=== PATIENT | female | born 1985 | race Caucasian/White ===

== ENCOUNTER 2016-12-20 09:23 | Outpatient (CLI) | payer OTHER ==
--- NOTE | 2016-12-20 09:49 | DIAGNOSTIC IMAGING REPORT ---
PROCEDURE: XR HIP BILATERAL INDICATION: LEFT HIP PAIN TECHNIQUE: AP view of the pelvis and hips with lateral views of the bilateral hips. COMPARISON: None. FINDINGS: RIGHT HIP: No fracture or dislocation. Normal joint space. Os acetabulum is present. LEFT HIP: No fracture or dislocation. Normal joint space. Os acetabulum is present. AP PELVIS: No suspicious osseous masses. Soft tissues are unremarkable. IMPRESSION: 1. Negative bilateral hips
== END 2016-12-20 23:00 ==
LOC: XR SRH 09:23
DX: M25.551 Pain in right hip (principal)

== ENCOUNTER 2017-01-22 09:59 | Outpatient (CLI) | payer OTHER ==
--- NOTE | 2017-01-22 10:37 | DIAGNOSTIC IMAGING REPORT ---
PROCEDURE: XR FOOT 3 VIEWS - LEFT INDICATION: LEFT FOOT PAIN TECHNIQUE: Three views. COMPARISON: None. FINDINGS: Osseous structures and joint spaces are normal. IMPRESSION: 1. Normal left foot.
== END 2017-01-22 23:00 ==
LOC: XR SRH 09:59
DX: M79.672 Pain in left foot (principal)

== ENCOUNTER 2017-03-03 11:22 | Outpatient (CLI) | payer OTHER | END 2017-03-03 23:00 | LOC: LAB SRH 11:22 | DX: N91.2 Amenorrhea, unspecified (principal) | CPT/HCPCS: 90004; 90074; 90078; 90261; 90364; 90599; 90600; 90605; 90606; 90710; 90851; 92863; 93140; 98480; 99777 ==